=== PATIENT | male | born 1990 | race Caucasian/White ===

== ENCOUNTER 2018-09-03 06:46 | Emergency (ER) | payer OTHER ==
[2018-09-03 07:02] LABS: ADD MAN DIFF? NO
[2018-09-03 07:04] LABS: BASOPHIL # 0.1 10^3/ul (0.0-0.1); BASOPHILS % 0.7 % (0.0-2.0); EOSINOPHILS # 0.1 10^3/ul (0.0-0.5); EOSINOPHILS % 0.6 % (0.0-7.0); HEMATOCRIT 45.9 % (42.0-52.0); HEMOGLOBIN 15.3 g/dl (14.0-18.0); LYMPHOCYTES # 1.9 10^3/ul (0.8-2.9); LYMPHOCYTES % 13.8 % (15.0-51.0); MEAN CORPUSCULAR HEMOGLOBIN 27.6 pg (29.0-33.0); MEAN CORPUSCULAR HGB CONC 33.3 g/dl (32.0-37.0); MEAN CORPUSCULAR VOLUME 82.7 fl (82.0-101.0); MONOCYTE # 1.2 10^3/ul (0.3-0.9); MONOCYTES % 8.5 % (0.0-11.0); NEUTROPHIL # 10.6 10^3/ul (1.6-7.5); NEUTROPHILS % 75.6 % (39.0-77.0); PLATELET COUNT 224 10^3/UL (140-415); RED BLOOD COUNT 5.55 10^6/ul (4.70-6.10); RED CELL DISTRIBUTION WIDTH 12.9 % (11.5-14.5)
[2018-09-03] MEDS: LORAZEPAM 2 MG INJ IV (07:08)
[2018-09-03] MEDS: SOD CHLORIDE 0.9% 1,000 ML IV (07:08)
[2018-09-03 07:28] LABS: ANION GAP 25 (5-13); BLOOD UREA NITROGEN 13 mg/dl (7-20); CALCIUM 9.5 mg/dl (8.4-10.2); CARBON DIOXIDE 14 mmol/L (21-31); CHLORIDE 103 mmol/L (97-110); CREATININE 1.09 mg/dl (0.61-1.24); Estimated GFR > 60 mL/min (>60); GLUCOSE 179 mg/dl (70-220); POTASSIUM 4.2 mmol/L (3.5-5.1); SODIUM 142 mmol/L (135-144)
[2018-09-03 07:35] LABS: PHENYTOIN (DILANTIN) < 3.0 ug/ml (10.0-20.0)
[2018-09-03] MEDS: PHENYTOIN 100 MG CAP PO (10:19)
== END 2018-09-03 10:42 | disposition home or self-care (01) ==
LOC: E/R 06:46
DX: R56.9 Unspecified convulsions (principal); R40.2142 Coma scale, eyes open, spontaneous, at arrival to emergency department; R40.2362 Coma scale, best motor response, obeys commands, at arrival to emergency department; R40.2252 Coma scale, best verbal response, oriented, at arrival to emergency department
CPT/HCPCS: 36415; 70450; 72125; 80048; 80185; 85025; 96374; 99285-25

== ENCOUNTER 2018-09-09 09:08 | Emergency (ER) | payer OTHER ==
[2018-09-09] MEDS: METHYLPREDNISOLONE 125 MG INJ IM (10:00)
[2018-09-09] MEDS: IBUPROFEN 800 MG TAB PO (10:00)
== END 2018-09-09 11:15 | disposition home or self-care (01) ==
LOC: FTE 09:08
DX: S00.532A Contusion of oral cavity, initial encounter (principal); X58.XXXA Exposure to other specified factors, initial encounter; Y92.9 Unspecified place or not applicable
CPT/HCPCS: 96372; 99284-25